=== PATIENT | female | born 1960 | race Caucasian/White ===

== ENCOUNTER → 2023-08-20 16:03 | Outpatient (REF) | payer OTHER, SELFPAY | LOC: HWWDC 16:03 | PROVIDERS: ATTENDING PHYSICIAN Family Medicine | DX: Z12.31 Encounter for screening mammogram for malignant neoplasm of breast (principal) | CPT/HCPCS: 77063; 77067 ==

== ENCOUNTER → 2024-08-20 07:48 | Outpatient (REF) | payer OTHER, SELFPAY | LOC: RCS 07:48 | PROVIDERS: ATTENDING PHYSICIAN Internal Medicine Interventional Cardiology; FAMILY PHYSICIAN Family Medicine | DX: R06.00 Dyspnea, unspecified (principal) | CPT/HCPCS: 93017 ==

== ENCOUNTER → 2024-10-01 06:51 | Outpatient (REF) | payer OTHER, SELFPAY | LOC: HWWDC 06:51 | PROVIDERS: ATTENDING PHYSICIAN Nurse Practitioner Adult Health; FAMILY PHYSICIAN Family Medicine | DX: Z12.31 Encounter for screening mammogram for malignant neoplasm of breast (principal) | CPT/HCPCS: 77063; 77067 ==